=== PATIENT | female | born 1970 | race Two or more races ===

== ENCOUNTER 2019-12-20 19:53 | Inpatient (IN) | payer MEDICAID, OTHER ==
[~2019-12-20] VITALS: Ht 157.5 cm; Wt 95.9 kg
[~2019-12-20 19:53] MED LIST: DOCU-119 PO; HYDR-309 PO
[2019-12-20 21:26] LABS: BASOPHILS % (AUTO) 0.7 % (0.0-2.0); EOSINOPHILS % (AUTO) 1.1 % (1.0-6.0); HEMATOCRIT 45.3 % (36-46); HEMOGLOBIN 15.1 g/dL (12.0-16.0); LYMPHOCYTES # (AUTO) 2.5 K/uL (1.0-4.8); LYMPHOCYTES % (AUTO) 29.9 % (22.0-44.0); MEAN CORPUSCULAR HEMOGLOBIN 29.6 pg (26.0-34.0); MEAN CORPUSCULAR HGB CONC 33.5 G/dL (31.0-37.0); MEAN CORPUSCULAR VOLUME 88 fL (80-100); MONOCYTES # (AUTO) 0.7 K/uL (0.1-1.0); MONOCYTES % (AUTO) 8.4 % (2.0-9.0); NEUTROPHILS % (AUTO) 59.9 % (40.0-70.0); PLATELET COUNT (AUTO) 279 K/uL (150-450); RED BLOOD CELL COUNT(AUTO) 5.13 MIL/uL (4.00-5.20); RED CELL DISTRIBUTION WIDTH 12.6 % (11.5-14.5)
[2019-12-20 21:38] LABS: ANION GAP 8 mmol/L (8-16); CALCIUM, TOTAL 9.1 mg/dL (8.8-10.5); CARBON DIOXIDE 30 mmol/L (22-29); CHLORIDE 108 mmol/L (98-107); CREATININE 0.69 mg/dL (0.60-1.30); GLOMERULAR FILTR. RATE CALC > 60 mL/min (>60); GLUCOSE,RANDOM 96 mg/dL (70-110); POTASSIUM 3.8 mmol/L (3.5-5.1); SODIUM SERUM 146 mmol/L (136-145); UREA NITROGEN, BLOOD 22 mg/dL (7-18)
[2019-12-20 21:44] LABS: ALANINE AMINOTRANSFERASE 56 U/L (12-78); ALBUMIN 3.8 g/dL (3.4-5.0); ALKALINE PHOSPHATASE 109 U/L (46-116); ASPARTATE AMINOTRANSFERASE 23 U/L (15-37); BILIRUBIN,TOTAL 0.4 mg/dL (0.1-1.0); TOTAL PROTEIN, SERUM 7.1 g/dL (6.4-8.2)
[2019-12-20 22:08] LABS: AMPHET/METH SCREEN,URINE NEGATIVE (NEGATIVE); BARBITURATE SCREEN, URINE NEGATIVE (NEGATIVE); BENZODIAZEPINES SCREEN,URINE NEGATIVE (NEGATIVE); CANNABINOID SCREEN,URINE NEGATIVE (NEGATIVE); COCAINE SCREEN,URINE NEGATIVE (NEGATIVE); METHADONE SCREEN, URINE NEGATIVE (NEGATIVE); OPIATE SCREEN,URINE NEGATIVE (NEGATIVE); PHENCYCLIDINE SCREEN,URINE NEGATIVE (NEGATIVE)
[2019-12-20] MEDS ORDERED: HALOPERIDOL LACTATE 5 MG/ML VIAL IM ONE (22:30)
[2019-12-20] MEDS ORDERED: LORazepam 2 MG/ML VIAL IM ONE (22:30)
[2019-12-21 01:17] VITALS: BP 140/70
[2019-12-21] MEDS ORDERED: NICOTINE 14 MG/24 HOUR PATCH TD PRN (09:15)
[2019-12-21] MEDS ORDERED: CloNIDine HCL 0.1 MG TABLET PO PRN (09:15)
[2019-12-21] MEDS ORDERED: MAG HYDROX/AL HYDROX/SIMETH ES 30 ML SUSPENSION UDCUP PO PRN (09:15)
[2019-12-21] MEDS ORDERED: PETROLATUM,WHITE 28 GM JELLY TP PRN (09:15)
[2019-12-21] MEDS ORDERED: ALBUTEROL SULFATE HFA 90 MCG/PUFF 8 GM INHALER IH PRN (09:15)
[2019-12-21] MEDS ORDERED: ONDANSETRON HCL 4 MG TABLET PO PRN (09:15)
[2019-12-21] MEDS ORDERED: ACETAMINOPHEN 325 MG TABLET PO PRN (09:15)
[2019-12-21] MEDS ORDERED: LOPERAMIDE HCL 2 MG CAPSULE PO PRN (09:15)
[2019-12-21] MEDS ORDERED: GuaiFENesin/D-METHORPHAN [SUGAR-FREE] 200-20MG/10 ML SYRUP UDCUP PO PRN (09:15)
[2019-12-21] MEDS ORDERED: MAGNESIUM HYDROXIDE SUSPENSION 30 ML UDCUP PO PRN (09:15)
[2019-12-21 10:48] VITALS: BP 122/78
[2019-12-21] MEDS: ESCITALOPRAM OXALATE 10 MG TABLET PO SCH (12:36)
[2019-12-21 16:31] VITALS: BP 153/82
[2019-12-21] MEDS: RisperiDONE 1 MG TABLET PO SCH (20:43)
[2019-12-22] MEDS: ESCITALOPRAM OXALATE 10 MG TABLET PO SCH (09:03)
[2019-12-22 10:54] VITALS: BP 93/61
[2019-12-22 17:25] VITALS: BP 138/77
[2019-12-22] MEDS: RisperiDONE 1 MG TABLET PO SCH (20:53)
[2019-12-22] MEDS: IBUPROFEN 400 MG TABLET PO PRN (20:53)
[2019-12-22 20:55] VITALS: BP 104/90
[2019-12-23] MEDS: ESCITALOPRAM OXALATE 10 MG TABLET PO SCH (09:30)
[2019-12-23 10:13] VITALS: BP 122/92
[2019-12-23 16:00] VITALS: BP 118/74
[2019-12-23] MEDS: RisperiDONE 1 MG TABLET PO SCH (20:14)
[2019-12-23] MEDS: LORazepam 2 MG TABLET PO PRN (20:14)
[2019-12-24 08:08] LABS: ANION GAP 7 mmol/L (8-16); CALCIUM, TOTAL 8.3 mg/dL (8.8-10.5); CARBON DIOXIDE 26 mmol/L (22-29); CHLORIDE 107 mmol/L (98-107); CREATININE 0.63 mg/dL (0.60-1.30); GLOMERULAR FILTR. RATE CALC > 60 mL/min (>60); GLUCOSE,RANDOM 91 mg/dL (70-110); POTASSIUM 4.2 mmol/L (3.5-5.1); SODIUM SERUM 140 mmol/L (136-145); UREA NITROGEN, BLOOD 20 mg/dL (7-18)
[2019-12-24] MEDS: ESCITALOPRAM OXALATE 10 MG TABLET PO SCH (08:44)
[2019-12-24 10:20] VITALS: BP 113/74
[2019-12-24] MEDS: LORazepam 2 MG TABLET PO PRN ×2 (12:31→18:08)
[2019-12-24 16:54] VITALS: BP 119/78
[2019-12-24] MEDS: HALOPERIDOL 5 MG TABLET PO PRN (18:08)
[2019-12-24] MEDS: RisperiDONE 1 MG TABLET PO SCH (20:35)
[2019-12-25 08:50] VITALS: BP 125/85
[2019-12-25] MEDS: ESCITALOPRAM OXALATE 10 MG TABLET PO SCH (09:26)
[2019-12-25 17:01] VITALS: BP 106/51
[2019-12-25] MEDS: HALOPERIDOL 5 MG TABLET PO PRN (19:28)
[2019-12-25] MEDS: DOCUSATE SODIUM 100 MG CAPSULE PO PRN (19:28)
[2019-12-25] MEDS: LORazepam 2 MG TABLET PO PRN (19:28)
[2019-12-25] MEDS: RisperiDONE 1 MG TABLET PO SCH (20:05)
[2019-12-26] MEDS: ESCITALOPRAM OXALATE 10 MG TABLET PO SCH (08:43)
[2019-12-26 09:53] VITALS: BP 99/62
[2019-12-26] MEDS: LORazepam 2 MG TABLET PO PRN (16:13)
[2019-12-26] MEDS: HALOPERIDOL 5 MG TABLET PO PRN (16:13)
[2019-12-26 19:54] VITALS: BP 115/63
[2019-12-26] MEDS: RisperiDONE 1 MG TABLET PO SCH (20:50)
[2019-12-27] MEDS: ESCITALOPRAM OXALATE 10 MG TABLET PO SCH (09:13)
[2019-12-27 10:28] VITALS: BP 126/78
[2019-12-27] MEDS: LORazepam 2 MG TABLET PO PRN (14:34)
[2019-12-27 16:00] VITALS: BP 139/80
[2019-12-27] MEDS: DOCUSATE SODIUM 100 MG CAPSULE PO PRN (16:29)
[2019-12-27] MEDS: RisperiDONE 1 MG TABLET PO SCH (21:28)
[2019-12-28 08:36] VITALS: BP 102/67
[2019-12-28] MEDS: ESCITALOPRAM OXALATE 10 MG TABLET PO SCH (09:07)
[2019-12-28] MEDS: HALOPERIDOL 5 MG TABLET PO PRN (15:39)
[2019-12-28] MEDS: LORazepam 2 MG TABLET PO PRN (15:39)
[2019-12-28 16:55] VITALS: BP 100/70
[2019-12-28] MEDS: RisperiDONE 1 MG TABLET PO SCH (20:29)
[2019-12-29 08:36] VITALS: BP 115/63
[2019-12-29] MEDS: ESCITALOPRAM OXALATE 10 MG TABLET PO SCH (09:23)
[2019-12-29 16:46] VITALS: BP 106/73
[2019-12-29] MEDS: RisperiDONE 1 MG TABLET PO SCH (20:06)
[2019-12-30] MEDS: LORazepam 2 MG TABLET PO PRN (01:01)
[2019-12-30] MEDS: ZOLPIDEM TARTRATE 10 MG TABLET PO PRN (01:01)
[2019-12-30 02:53] VITALS: BP 129/77
[2019-12-30 05:51] LABS: APPEARANCE,URINE CLEAR (CLEAR); BILIRUBIN,URINE NEGATIVE (NEGATIVE); GLUCOSE, URINE (UA) NEGATIVE (NEGATIVE); KETONES,URINE NEGATIVE (NEGATIVE); LEUKOCYTE ESTERASE ,URINE SMALL (NEGATIVE); NITRATE,URINE NEGATIVE (NEGATIVE); OCCULT BLOOD,URINE NEGATIVE (NEGATIVE); PH,URINE 6.5 (5.0-8.0); PROTEIN,URINE NEGATIVE (NEGATIVE); UROBILINOGEN,URINE 0.2 mg/dL (<=1.0)
[2019-12-30 05:52] LABS: BACTERIA,URINE None Seen /HPF (None Seen); RBC,URINE None Seen /HPF (0-2)
[2019-12-30 05:53] LABS: SQUAMOUS EPITHELIAL CELL,UR Rare /LPF (None Seen)
[2019-12-30 08:48] VITALS: BP 111/74
[2019-12-30] MEDS: ESCITALOPRAM OXALATE 10 MG TABLET PO SCH (08:48)
[2019-12-30 08:49] VITALS: BP 111/74
[2019-12-30 16:42] VITALS: BP 100/55
[2019-12-30] MEDS: HALOPERIDOL 5 MG TABLET PO PRN (20:21)
[2019-12-30] MEDS: RisperiDONE 1 MG TABLET PO SCH (20:21)
[2019-12-31 08:00] VITALS: BP 120/91
[2019-12-31] MEDS: ESCITALOPRAM OXALATE 10 MG TABLET PO SCH (09:39)
[2019-12-31 17:00] VITALS: BP 115/88
[2019-12-31] MEDS: RisperiDONE 1 MG TABLET PO SCH (20:20)
[2019-12-31] MEDS: CEPHALEXIN MONOHYDRATE 500 MG CAPSULE PO SCH (20:21)
[2020-01-01 03:40] VITALS: BP 132/78
[2020-01-01] MEDS: LORazepam 2 MG TABLET PO PRN (03:41)
[2020-01-01 09:31] VITALS: BP 113/60
[2020-01-01] MEDS: ESCITALOPRAM OXALATE 10 MG TABLET PO SCH (10:01)
[2020-01-01] MEDS: CEPHALEXIN MONOHYDRATE 500 MG CAPSULE PO SCH ×2 (10:05→16:12)
[2020-01-01 17:18] VITALS: BP 116/77
[2020-01-01] MEDS: RisperiDONE 1 MG TABLET PO SCH (20:19)
[2020-01-01] MEDS: ZOLPIDEM TARTRATE 10 MG TABLET PO PRN (20:56)
[2020-01-02] MEDS: ESCITALOPRAM OXALATE 10 MG TABLET PO SCH (08:50)
[2020-01-02] MEDS: CEPHALEXIN MONOHYDRATE 500 MG CAPSULE PO SCH (08:51)
[2020-01-02 09:12] VITALS: BP 120/92
[2020-01-02] MEDS ORDERED: CEPH-582 PO (12:50)
[2020-01-02] MEDS ORDERED: ESCI5TAB PO (12:52)
[2020-01-02] MEDS ORDERED: RISP1 PO (12:53)
[2020-01-02 14:24] VITALS: BP 127/70
[2020-01-02] MEDS: IBUPROFEN 400 MG TABLET PO PRN (14:24)
[2020-01-02 15:10] VITALS: BP 127/70
[2020-01-02 15:24] VITALS: BP 124/95
== END 2020-01-02 16:30 | disposition home or self-care (01) | DRG 885 ==
LOC: EMS 19:54 → 3EI 12-21 00:01
PROVIDERS: ADMIT Psychiatry & Neurology Child & Adolescent Psychiatry; ATTEND Psychiatry & Neurology Child & Adolescent Psychiatry
DX: F20.9 Schizophrenia, unspecified (principal); R45.851 Suicidal ideations; E87.0 Hyperosmolality and hypernatremia; N39.0 Urinary tract infection, site not specified; G43.909 Migraine, unspecified, not intractable, without status migrainosus; F17.210 Nicotine dependence, cigarettes, uncomplicated; F10.10 Alcohol abuse, uncomplicated; E78.5 Hyperlipidemia, unspecified
CPT/HCPCS: 73521; 87086; G0480; J1630; J2060; Q0162

== ENCOUNTER 2020-01-26 18:22 | Inpatient (IN) | payer MEDICAID ==
[~2020-01-26] VITALS: Ht 160 cm; Wt 98.2 kg
[~2020-01-26 18:22] MED LIST changes: +CEPH-582 PO; -DOCU-119 PO; +ESCI5TAB PO; -HYDR-309 PO; +RISP1 PO
[2020-01-26] MEDS ORDERED: MACR100 PO (18:28)
[2020-01-26] MEDS ORDERED: RISP2 PO (18:28)
[2020-01-26 20:05] LABS: BASOPHILS % (AUTO) 0.8 % (0.0-2.0); EOSINOPHILS % (AUTO) 4.3 % (1.0-6.0); HEMATOCRIT 38.1 % (36-46); HEMOGLOBIN 12.9 g/dL (12.0-16.0); LYMPHOCYTES % (AUTO) 34.7 % (22.0-44.0); MEAN CORPUSCULAR VOLUME 88 fL (80-100); MONOCYTES # (AUTO) 0.5 K/uL (0.1-1.0); MONOCYTES % (AUTO) 7.8 % (2.0-9.0); NEUTROPHILS % (AUTO) 52.4 % (40.0-70.0); PLATELET COUNT (AUTO) 215 K/uL (150-450); RED BLOOD CELL COUNT(AUTO) 4.31 MIL/uL (4.00-5.20); RED CELL DISTRIBUTION WIDTH 12.5 % (11.5-14.5)
[2020-01-26 20:06] LABS: AMPHET/METH SCREEN,URINE NEGATIVE (NEGATIVE); BARBITURATE SCREEN, URINE NEGATIVE (NEGATIVE); BENZODIAZEPINES SCREEN,URINE NEGATIVE (NEGATIVE); CANNABINOID SCREEN,URINE NEGATIVE (NEGATIVE); COCAINE SCREEN,URINE NEGATIVE (NEGATIVE); METHADONE SCREEN, URINE NEGATIVE (NEGATIVE); OPIATE SCREEN,URINE NEGATIVE (NEGATIVE)
[2020-01-26 20:07] LABS: PHENCYCLIDINE SCREEN,URINE NEGATIVE (NEGATIVE)
[2020-01-26 20:16] LABS: ANION GAP 5 mmol/L (8-16); CALCIUM, TOTAL 8.8 mg/dL (8.8-10.5); CARBON DIOXIDE 30 mmol/L (22-29); CHLORIDE 110 mmol/L (98-107); CREATININE 0.52 mg/dL (0.60-1.30); GLOMERULAR FILTR. RATE CALC > 60 mL/min (>60); GLUCOSE,RANDOM 109 mg/dL (70-110); POTASSIUM 4.3 mmol/L (3.5-5.1); SODIUM SERUM 145 mmol/L (136-145); UREA NITROGEN, BLOOD 20 mg/dL (7-18)
[2020-01-26 20:22] LABS: ALANINE AMINOTRANSFERASE 52 U/L (12-78); ALBUMIN 3.6 g/dL (3.4-5.0); ALKALINE PHOSPHATASE 140 U/L (46-116); ASPARTATE AMINOTRANSFERASE 37 U/L (15-37); BILIRUBIN,TOTAL 0.2 mg/dL (0.1-1.0); TOTAL PROTEIN, SERUM 6.6 g/dL (6.4-8.2)
[2020-01-26] MEDS ORDERED: LORazepam 2 MG/ML VIAL IM ONE (21:30)
[2020-01-26 21:44] LABS: APPEARANCE,URINE CLOUDY (CLEAR); BILIRUBIN,URINE NEGATIVE (NEGATIVE); GLUCOSE, URINE (UA) NEGATIVE (NEGATIVE); KETONES,URINE NEGATIVE (NEGATIVE); LEUKOCYTE ESTERASE ,URINE LARGE (NEGATIVE); NITRATE,URINE NEGATIVE (NEGATIVE); OCCULT BLOOD,URINE NEGATIVE (NEGATIVE); PROTEIN,URINE NEGATIVE (NEGATIVE)
[2020-01-26 21:52] LABS: BACTERIA,URINE None Seen /HPF (None Seen); RBC,URINE 0-2 /HPF (0-2); SQUAMOUS EPITHELIAL CELL,UR Few /LPF (None Seen)
[2020-01-27 01:50] VITALS: BP 140/91
[2020-01-27] MEDS ORDERED: INFLUENZA VIRUS VACCINE QVS 2019-20 (3YR+)/PF 60 MCG/0.5 ML SYRINGE IM ONE (03:30)
[2020-01-27 08:36] VITALS: BP 148/93
[2020-01-27] MEDS ORDERED: NICOTINE 14 MG/24 HOUR PATCH TD PRN (08:45)
[2020-01-27] MEDS ORDERED: ALBUTEROL SULFATE HFA 90 MCG/PUFF 8 GM INHALER IH PRN (08:45)
[2020-01-27] MEDS ORDERED: MAGNESIUM HYDROXIDE SUSPENSION 30 ML UDCUP PO PRN (08:45)
[2020-01-27] MEDS ORDERED: GuaiFENesin/D-METHORPHAN [SUGAR-FREE] 200-20MG/10 ML SYRUP UDCUP PO PRN (08:45)
[2020-01-27] MEDS ORDERED: DOCUSATE SODIUM 100 MG CAPSULE PO PRN (08:45)
[2020-01-27] MEDS ORDERED: MAG HYDROX/AL HYDROX/SIMETH ES 30 ML SUSPENSION UDCUP PO PRN (08:45)
[2020-01-27] MEDS ORDERED: PETROLATUM,WHITE 28 GM JELLY TP PRN (08:45)
[2020-01-27] MEDS ORDERED: LOPERAMIDE HCL 2 MG CAPSULE PO PRN (08:45)
[2020-01-27] MEDS ORDERED: ONDANSETRON HCL 4 MG TABLET PO PRN (08:45)
[2020-01-27] MEDS ORDERED: CloNIDine HCL 0.1 MG TABLET PO PRN (08:45)
[2020-01-27 08:50] LABS: CHOL/HDL RATIO 3.3 (3.9-5.7)
[2020-01-27] MEDS: NITROFURANTOIN/NITROFURAN MAC 100 MG CAPSULE [MACROBID] PO SCH ×2 (09:22→16:29)
[2020-01-27] MEDS: ESCITALOPRAM OXALATE 10 MG TABLET PO SCH (09:39)
[2020-01-27] MEDS: IBUPROFEN 400 MG TABLET PO PRN (09:39)
[2020-01-27 16:11] VITALS: BP 140/91
[2020-01-27] MEDS ORDERED: ESCI10TA PO (19:50)
[2020-01-27] MEDS: RisperiDONE 2 MG TABLET PO SCH (20:28)
[2020-01-28 04:10] VITALS: BP 135/82
[2020-01-28 08:31] VITALS: BP 118/64
[2020-01-28] MEDS: ESCITALOPRAM OXALATE 10 MG TABLET PO SCH (08:33)
[2020-01-28] MEDS: NITROFURANTOIN/NITROFURAN MAC 100 MG CAPSULE [MACROBID] PO SCH ×2 (08:37→16:24)
[2020-01-28] MEDS: IBUPROFEN 400 MG TABLET PO PRN (09:38)
[2020-01-28] MEDS: ACETAMINOPHEN 325 MG TABLET PO PRN (13:14)
[2020-01-28 16:14] VITALS: BP 128/65
[2020-01-28] MEDS: SUMAtriptan SUCCINATE 25 MG TABLET PO SCH (16:24)
[2020-01-28] MEDS: LORazepam 2 MG TABLET PO PRN (20:25)
[2020-01-28] MEDS: RisperiDONE 2 MG TABLET PO SCH (20:27)
[2020-01-29 04:59] VITALS: BP 115/62
[2020-01-29 08:36] VITALS: BP 116/57
[2020-01-29] MEDS: ESCITALOPRAM OXALATE 10 MG TABLET PO SCH (08:39)
[2020-01-29] MEDS: NITROFURANTOIN/NITROFURAN MAC 100 MG CAPSULE [MACROBID] PO SCH ×2 (08:41→16:03)
[2020-01-29] MEDS: SUMAtriptan SUCCINATE 25 MG TABLET PO SCH ×2 (08:41→16:03)
[2020-01-29] MEDS: ACETAMINOPHEN 325 MG TABLET PO PRN (14:26)
[2020-01-29 14:27] VITALS: BP 120/79
[2020-01-29] MEDS: HALOPERIDOL 5 MG TABLET PO PRN (16:03)
[2020-01-29] MEDS: LORazepam 2 MG TABLET PO PRN (16:03)
[2020-01-29 17:03] VITALS: BP 108/68
[2020-01-29] MEDS: RisperiDONE 2 MG TABLET PO SCH (20:18)
[2020-01-30 05:15] VITALS: BP 112/70
[2020-01-30 08:12] VITALS: BP 110/61
[2020-01-30] MEDS: ESCITALOPRAM OXALATE 10 MG TABLET PO SCH (08:43)
[2020-01-30] MEDS: SUMAtriptan SUCCINATE 25 MG TABLET PO SCH ×2 (08:43→16:43)
[2020-01-30] MEDS: NITROFURANTOIN/NITROFURAN MAC 100 MG CAPSULE [MACROBID] PO SCH ×2 (08:43→16:42)
[2020-01-30] MEDS: LORazepam 2 MG TABLET PO PRN (10:48)
[2020-01-30] MEDS: HALOPERIDOL 5 MG TABLET PO PRN (10:48)
[2020-01-30 16:05] VITALS: BP 118/76
[2020-01-30] MEDS: OLANZapine 5 MG RAPDIS TABLET PO PRN (21:38)
[2020-01-31 05:16] VITALS: BP 114/78
[2020-01-31 08:14] VITALS: BP 106/57
[2020-01-31] MEDS ORDERED: ARIPiprazole 5 MG TABLET PO SCH (09:00)
[2020-01-31] MEDS: NITROFURANTOIN/NITROFURAN MAC 100 MG CAPSULE [MACROBID] PO SCH ×2 (09:25→17:24)
[2020-01-31] MEDS: SUMAtriptan SUCCINATE 25 MG TABLET PO SCH ×2 (09:26→17:23)
[2020-01-31] MEDS: ESCITALOPRAM OXALATE 10 MG TABLET PO SCH (09:27)
[2020-01-31 14:30] VITALS: BP 112/74
[2020-01-31] MEDS: LORazepam 2 MG TABLET PO PRN ×2 (14:36→19:26)
[2020-01-31 16:08] VITALS: BP 108/63
[2020-01-31] MEDS: OLANZapine 5 MG RAPDIS TABLET PO PRN (19:26)
[2020-01-31] MEDS: IBUPROFEN 400 MG TABLET PO PRN (20:01)
[2020-02-01 03:47] VITALS: BP 100/64
[2020-02-01 08:01] LABS: ALANINE AMINOTRANSFERASE 108 U/L (12-78); ALBUMIN 3.2 g/dL (3.4-5.0); ALKALINE PHOSPHATASE 105 U/L (46-116); ANION GAP 6 mmol/L (8-16); ASPARTATE AMINOTRANSFERASE 60 U/L (15-37); BILIRUBIN,TOTAL 0.4 mg/dL (0.1-1.0); CALCIUM, TOTAL 8.9 mg/dL (8.8-10.5); CARBON DIOXIDE 29 mmol/L (22-29); CHLORIDE 105 mmol/L (98-107); GLOMERULAR FILTR. RATE CALC > 60 mL/min (>60); GLUCOSE,RANDOM 85 mg/dL (70-110); POTASSIUM 3.9 mmol/L (3.5-5.1); SODIUM SERUM 140 mmol/L (136-145); TOTAL PROTEIN, SERUM 6.2 g/dL (6.4-8.2); UREA NITROGEN, BLOOD 20 mg/dL (7-18)
[2020-02-01 08:28] VITALS: BP 113/61
[2020-02-01] MEDS: ARIPiprazole 10 MG TABLET PO SCH (08:48)
[2020-02-01] MEDS: ESCITALOPRAM OXALATE 10 MG TABLET PO SCH (08:48)
[2020-02-01] MEDS: SUMAtriptan SUCCINATE 25 MG TABLET PO SCH ×2 (08:49→16:24)
[2020-02-01 16:05] VITALS: BP 119/72
[2020-02-01] MEDS: LORazepam 2 MG TABLET PO PRN (20:23)
[2020-02-02 05:44] VITALS: BP 124/61
[2020-02-02] MEDS: ARIPiprazole 10 MG TABLET PO SCH (08:08)
[2020-02-02] MEDS: ESCITALOPRAM OXALATE 10 MG TABLET PO SCH (08:10)
[2020-02-02] MEDS: SUMAtriptan SUCCINATE 25 MG TABLET PO SCH ×2 (08:10→16:38)
[2020-02-02 08:17] VITALS: BP 109/60
[2020-02-02] MEDS: LORazepam 2 MG TABLET PO PRN ×2 (12:55→18:55)
[2020-02-02 16:31] VITALS: BP 134/79
[2020-02-02] MEDS: OLANZapine 5 MG RAPDIS TABLET PO PRN (20:18)
[2020-02-02] MEDS: ZOLPIDEM TARTRATE 10 MG TABLET PO PRN (20:18)
[2020-02-03 05:12] VITALS: BP 121/69
[2020-02-03 08:38] VITALS: BP 131/67
[2020-02-03] MEDS: SUMAtriptan SUCCINATE 25 MG TABLET PO SCH ×2 (09:15→16:36)
[2020-02-03] MEDS: ESCITALOPRAM OXALATE 10 MG TABLET PO SCH (09:16)
[2020-02-03] MEDS: ARIPiprazole 10 MG TABLET PO SCH (09:16)
[2020-02-03 16:18] VITALS: BP 135/77
[2020-02-03] MEDS: OLANZapine 5 MG RAPDIS TABLET PO PRN (16:40)
[2020-02-03] MEDS: LORazepam 2 MG TABLET PO PRN (16:40)
[2020-02-03] MEDS: ZOLPIDEM TARTRATE 10 MG TABLET PO PRN (20:24)
[2020-02-04 01:38] VITALS: BP 116/75
[2020-02-04 08:19] VITALS: BP 108/61
[2020-02-04] MEDS: SUMAtriptan SUCCINATE 25 MG TABLET PO SCH ×2 (08:44→16:50)
[2020-02-04] MEDS: ARIPiprazole 15 MG TABLET PO SCH (08:45)
[2020-02-04] MEDS ORDERED: ESCITALOPRAM OXALATE 10 MG TABLET PO SCH ×2 (09:00→09:15)
[2020-02-04] MEDS ORDERED: ESCITALOPRAM OXALATE 10 MG TABLET PO ONE (09:45)
[2020-02-04] MEDS: LORazepam 2 MG TABLET PO PRN (11:47)
[2020-02-04] MEDS: OLANZapine 5 MG RAPDIS TABLET PO PRN ×2 (11:47→17:13)
[2020-02-04 16:10] VITALS: BP 126/77
[2020-02-04] MEDS: ZOLPIDEM TARTRATE 10 MG TABLET PO PRN (20:28)
[2020-02-05 05:30] VITALS: BP 112/66
[2020-02-05 08:22] VITALS: BP 136/64
[2020-02-05] MEDS: ARIPiprazole 15 MG TABLET PO SCH (08:35)
[2020-02-05] MEDS: SUMAtriptan SUCCINATE 25 MG TABLET PO SCH ×2 (08:35→16:11)
[2020-02-05] MEDS: ESCITALOPRAM OXALATE 10 MG TABLET PO SCH (08:35)
[2020-02-05] MEDS: IBUPROFEN 400 MG TABLET PO PRN ×2 (10:13→19:03)
[2020-02-05 16:32] VITALS: BP 126/80
[2020-02-05 19:08] VITALS: BP 129/85
[2020-02-05] MEDS ORDERED: TraMADol HCL 50 MG TABLET PO PRN (19:15)
[2020-02-05] MEDS: LORazepam 2 MG TABLET PO PRN (20:54)
[2020-02-06 04:09] VITALS: BP 124/73
[2020-02-06] MEDS ORDERED: SUMA25TA9 PO (06:33)
[2020-02-06] MEDS ORDERED: ARIP15TA2 PO (06:33)
[2020-02-06] MEDS: SUMAtriptan SUCCINATE 25 MG TABLET PO SCH ×2 (08:07→16:52)
[2020-02-06] MEDS: ARIPiprazole 15 MG TABLET PO SCH (08:08)
[2020-02-06] MEDS: ESCITALOPRAM OXALATE 10 MG TABLET PO SCH (08:08)
[2020-02-06 08:23] VITALS: BP 117/68
[2020-02-06] MEDS: LORazepam 2 MG TABLET PO PRN (12:11)
[2020-02-06 16:45] VITALS: BP 125/80
[2020-02-06] MEDS: BusPIRone HCL 5 MG TABLET PO SCH (16:52)
[2020-02-06] MEDS: LORazepam 1 MG TABLET PO PRN (20:35)
[2020-02-06] MEDS: OLANZapine 5 MG RAPDIS TABLET PO PRN (20:49)
[2020-02-07 02:54] VITALS: BP 121/80
[2020-02-07 08:21] VITALS: BP 128/76
[2020-02-07] MEDS: BusPIRone HCL 5 MG TABLET PO SCH ×3 (08:32→17:07)
[2020-02-07] MEDS: SUMAtriptan SUCCINATE 25 MG TABLET PO SCH ×3 (08:33→17:08)
[2020-02-07] MEDS: ARIPiprazole 15 MG TABLET PO SCH (08:34)
[2020-02-07] MEDS: ESCITALOPRAM OXALATE 10 MG TABLET PO SCH (08:34)
[2020-02-07] MEDS: LORazepam 1 MG TABLET PO PRN (10:48)
[2020-02-07] MEDS: OLANZapine 5 MG RAPDIS TABLET PO PRN (10:48)
[2020-02-07 16:50] VITALS: BP 121/68
[2020-02-07] MEDS: GABAPENTIN 300 MG CAPSULE PO SCH (17:08)
[2020-02-07] MEDS: ZOLPIDEM TARTRATE 10 MG TABLET PO PRN (21:00)
[2020-02-08 05:04] VITALS: BP 115/64
[2020-02-08] MEDS: ESCITALOPRAM OXALATE 10 MG TABLET PO SCH (08:18)
[2020-02-08] MEDS: ARIPiprazole 15 MG TABLET PO SCH (08:18)
[2020-02-08] MEDS: BusPIRone HCL 5 MG TABLET PO SCH (08:19)
[2020-02-08] MEDS: SUMAtriptan SUCCINATE 25 MG TABLET PO SCH (08:20)
[2020-02-08] MEDS: GABAPENTIN 300 MG CAPSULE PO SCH (08:20)
[2020-02-08 08:23] VITALS: BP 116/55
[2020-02-08] MEDS ORDERED: ARIP15TA2 PO (09:35)
[2020-02-08] MEDS ORDERED: ESCI10TA61 PO (09:35)
[2020-02-08] MEDS ORDERED: BUSP5TAB20 PO (09:35)
[2020-02-08] MEDS ORDERED: GABA-531 PO (09:48)
== END 2020-02-08 10:03 | disposition home or self-care (01) | DRG 750 ==
LOC: EMS 18:24 → UNDOADMIN 23:15 → B3A 23:15 → 3EI 23:15 → B3A 01-27 07:47
DX: F25.1 Schizoaffective disorder, depressive type (principal); F10.10 Alcohol abuse, uncomplicated; G43.909 Migraine, unspecified, not intractable, without status migrainosus; F41.9 Anxiety disorder, unspecified; N39.0 Urinary tract infection, site not specified; Z87.891 Personal history of nicotine dependence; Z79.899 Other long term (current) drug therapy; Z28.21 Immunization not carried out because of patient refusal
CPT/HCPCS: 87081; 87086; G0480; J2060; Q0162

== ENCOUNTER 2020-11-14 11:46 | Emergency (ER) | payer MEDICAID ==
[~2020-11-14] VITALS: Ht 154.9 cm; Wt 93.2 kg
[~2020-11-14 11:46] MED LIST changes: +ARIP15TA2 PO; +BUSP5TAB20 PO; -CEPH-582 PO; +ESCI10TA61 PO; -ESCI5TAB PO; +GABA-1181 PO; -RISP1 PO; +SUMA25TA9 PO
[2020-11-14 12:05] VITALS: BP 135/71
== END 2020-11-14 14:35 | disposition home or self-care (01) ==
LOC: EMS 11:46
DX: M25.512 Pain in left shoulder (principal); G43.909 Migraine, unspecified, not intractable, without status migrainosus; F17.210 Nicotine dependence, cigarettes, uncomplicated; F15.90 Other stimulant use, unspecified, uncomplicated; Z91.013 Allergy to seafood; Z79.899 Other long term (current) drug therapy

== ENCOUNTER 2023-12-07 21:42 | Emergency (ER) | payer MEDICAID ==
[~2023-12-07] VITALS: Ht 162.6 cm; Wt 91.0 kg
[~2023-12-07 21:42] MED LIST changes: -ARIP15TA2 PO; +ARIP15TA27 PO; +ESCI10 PO; -ESCI10TA61 PO; +SUMA25TA15 PO; -SUMA25TA9 PO
[2023-12-07 21:50] VITALS: TEMP 98.5
[2023-12-07] MEDS ORDERED: KETOROLAC TROMETHAMINE 60 MG/2 ML VIAL IM ONE (22:45)
[2023-12-07] MEDS ORDERED: OxyCODONE HCL/ACETAMINOPHEN 5-325 MG TABLET PO ONE (22:45)
[2023-12-07 23:00] LABS: APPEARANCE,URINE CLEAR (CLEAR); BILIRUBIN,URINE NEGATIVE (NEGATIVE); COLOR,URINE LIGHT YELLOW (YELLOW); GLUCOSE, URINE (UA) NEGATIVE (NEGATIVE); KETONES,URINE NEGATIVE (NEGATIVE); LEUKOCYTE ESTERASE ,URINE MODERATE (NEGATIVE); NITRATE,URINE NEGATIVE (NEGATIVE); OCCULT BLOOD,URINE NEGATIVE (NEGATIVE); PROTEIN,URINE NEGATIVE (NEGATIVE); SPECIFIC GRAVITIY, URINE 1.019 (1.003-1.030); UROBILINOGEN,URINE <=1.0 mg/dL (<=1.0)
[2023-12-07 23:19] LABS: RBC,URINE 0-2 /HPF (0-2)
[2023-12-07 23:20] LABS: BACTERIA,URINE Few /HPF (None Seen); SQUAMOUS EPITHELIAL CELL,UR Few /LPF (None Seen)
[2023-12-07] MEDS ORDERED: SULFAMETHOX/TRIMETH DS 800-160 MG/TABLET PO ONE (23:30)
[2023-12-07] MEDS ORDERED: IBUP-1492 PO (23:47)
[2023-12-07] MEDS ORDERED: SULF-261 PO (23:48)
[2023-12-07] MEDS ORDERED: PERCT PO (23:48)
[2023-12-08 00:08] VITALS: BP 140/74; PULSE 85; RESP 18
== END 2023-12-08 09:00 | disposition home or self-care (01) ==
LOC: EMS 21:50
DX: M54.50 Low back pain, unspecified (principal); G43.909 Migraine, unspecified, not intractable, without status migrainosus; Z87.891 Personal history of nicotine dependence; Z90.49 Acquired absence of other specified parts of digestive tract; Z91.013 Allergy to seafood
CPT/HCPCS: 99283; 81001; 96372; J1885